=== PATIENT | male | born 1940 | race Caucasian/White ===

== ENCOUNTER 2022-09-07 21:36 | Inpatient (IN) | payer OTHER, BC ==
[~2022-09-07] VITALS: Ht 175.3 cm; Wt 70.1 kg
[2022-09-07 21:36] VITALS: BP_SYST 122
--- NOTE | 2022-09-07 21:36 | NUR ---
BROUGHT IN BY [facility], PLACED IN BED #4 AND TRIAGED. REPORT GIVEN TO HOLLY
--- NOTE | 2022-09-07 21:50 | NUR ---
FIRST CONTACT WITH PT. ASSESSMENT COMPLETED. AWAITING ADDITIONAL EVAL AND ORDERS.
[2022-09-07] MEDS ORDERED: cefTRIAXone 1 GM IVPB PREMIX 50 ML IV ONE (22:15)
[2022-09-07 23:27] LABS: BASOPHILS % (AUTO) 0.6 % (0.0-2.0); EOSINOPHILS # (AUTO) 0.2 K/uL (0.0-0.4); EOSINOPHILS % (AUTO) 3.9 % (0.0-4.0); HEMATOCRIT 33.1 % (36-54); HEMOGLOBIN 11.1 g/dL (14.0-18.0); LYMPHOCYTES # (AUTO) 0.8 K/uL (1.0-5.5); LYMPHOCYTES % (AUTO) 12.8 % (20.5-51.5); MEAN CORPUSCULAR HEMOGLOBIN 33 pg (27-31); MEAN CORPUSCULAR HGB CONC 34 % (32-36); MEAN CORPUSCULAR VOLUME 97 fL (79.0-98.0); MONOCYTES # (AUTO) 0.6 K/uL (0.0-1.0); MONOCYTES % (AUTO) 9.3 % (1.7-9.3); NEUTROPHILS # (AUTO) 4.5 K/uL (1.8-7.7); NEUTROPHILS % (AUTO) 73.4 % (40.0-70.0); PLATELET COUNT (AUTO) 133 K/uL (130-430); RED BLOOD CELL COUNT(AUTO) 3.41 MIL/uL (4.2-6.2); RED CELL DISTRIBUTION WIDTH 14.8 % (9.0-15.0); WHITE BLOOD COUNT (AUTO) 6.1 K/uL (4.8-10.8)
--- NOTE | 2022-09-07 23:28 | NUR ---
MD AT BEDSIDE FOR EVALUATION AND ORDERS.
[2022-09-07 23:46] LABS: ANION GAP 9 (5-15); CALCIUM 8.1 mg/dL (8.4-11.0); CHLORIDE 104 mmol/L (98-107); CREATININE 1.08 mg/dL (0.55-1.30); GLUCOSE 142 mg/dL (70-99); UREA NITROGEN, BLOOD 12 mg/dL (8-21)
[2022-09-07 23:53] LABS: ALANINE AMINOTRANSFERASE 34 U/L (12-78); ALBUMIN 3.1 g/dL (3.4-4.8); ASPARTATE AMINOTRANSFERASE 38 U/L (10-37)
--- NOTE | 2022-09-08 00:08 | NUR ---
URINE SAMPLE COLLECTED AND SENT TO LAB
[2022-09-08 00:20] LABS: BILIRUBIN,URINE NEGATIVE (NEGATIVE); BLOOD, URINE NEGATIVE (NEGATIVE); CLARITY/URINE CLEAR (CLEAR); COLOR,URINE YELLOW (YELLOW); GLUCOSE,URINE NEGATIVE (NEGATIVE); KETONES,URINE NEGATIVE (NEGATIVE); LEUKOCYTE ESTERASE ,URINE NEGATIVE (NEGATIVE); NITRITE, URINE NEGATIVE (NEGATIVE); PROTEIN URINE NEGATIVE (NEGATIVE)
--- NOTE | 2022-09-08 00:34 | NUR ---
Admit bed requested Patient will be admitted to care of . Admitted to TELE unit. Diagnosis CHEST PAIN/ WEAKNESS Inpatient (Yes or No) Y Observation (Yes or No) N Orientation concerns or request close to nursing station (Yes or No) N Covid Status NA On vent or bipap N Isolation requirements N Needs a sitter N From Home (Yes or if No enter name of facility) Y Requires Dialysis (Yes or No) N Med Rec Completed (Yes of No) Y
[2022-09-08] MEDS ORDERED: LEVO25TA2 PO (00:51)
[2022-09-08] MEDS ORDERED: DONE10TA44 PO (00:51)
[2022-09-08] MEDS ORDERED: LIP40 PO (00:51)
[2022-09-08] MEDS ORDERED: PHEDM120 PO (00:51)
[2022-09-08] MEDS ORDERED: TICA90TA PO (00:51)
[2022-09-08] MEDS ORDERED: CARV3.1246 PO (00:51)
[2022-09-08] MEDS ORDERED: SER25 PO (00:54)
[2022-09-08] MEDS ORDERED: ESCI10TA PO (00:54)
[2022-09-08 02:27] VITALS: BP_SYST 128
--- NOTE | 2022-09-08 02:33 | NUR ---
Patient will be admitted to care of DR QUAN. Admitted to TELE unit. Will go to room 114A. Belongings list completed. Complete and up to date summary report printed. SBAR report to be given at bedside TO HOLLEY MURPHY with opportunity for questions.
--- NOTE | 2022-09-08 03:00 | NUR ---
ADMISSION NOTE Received patient from ER via gurney. Patient admitted with diagnosis of Hypotension. Patient is awake, alert, oriented X . Patient oriented to hospital room, call light, toileting, pain management and safety-teach back done. Patient is FALL RISK informed THAT THERE room number is . Personal belongings checked and Belongings List documented. Call light within reach PROCEDURES EXPLAINED call cee also given to patient BED ALARM IS ON / .
--- NOTE | 2022-09-08 03:15 | NUR ---
Hourly Rounding patient is Resting is verbally Responsive chest movement symmetrical also unlabored bed alarm is on SKIN DRY WARM assist for position comfort measures implemented tolerated / .
--- NOTE | 2022-09-08 03:57 | NUR ---
Consultation Paged Reason for Consultation: Chest Pain Was consult called: Y Person who was notified: Nigel Davis via text message Consulting Physician: Nigel Davis Ordering Physician: Nghai Davis
--- NOTE | 2022-09-08 07:40 | NUR ---
Opening Nurse Notes: Patient laying in bed. A/O x 3, Japanese speaking. Patient breathing even on room air. No pain, no distress, no SOB. Patient is on a cardiac diet. Bed is locked in lowest position. Call light within reach, all needs met, will continue with plan of care.
[2022-09-08 08:10] VITALS: BP_SYST 113
[2022-09-08] MEDS ORDERED: PROMETHAZINE-DM 6.25 MG-15 MG/5 ML UDC PO PRN (09:30)
[2022-09-08] MEDS ORDERED: HYDROcodone/ACETAMIN 5-325 MG TAB (NORCO/ VICODIN) PO PRN (09:30)
[2022-09-08] MEDS ORDERED: LORazepam 2 MG/ML VIAL IVP PRN (09:30)
[2022-09-08] MEDS ORDERED: ACETAMINOPHEN 325 MG TABLET PO PRN ×2 (09:30→10:15)
[2022-09-08] MEDS ORDERED: ESCITALOPRAM OXALATE 10 MG TABLET PO SCH (09:30)
[2022-09-08] MEDS ORDERED: ONDANSETRON HCL 4 MG/2 ML VIAL IVP PRN (09:30)
[2022-09-08] MEDS ORDERED: HYDROcodone/ACETAMIN 10-325 MG TAB PO PRN (09:30)
[2022-09-08] MEDS ORDERED: NALOXONE HCL 0.4 MG/ML AMP (NARCAN) IVP PRN ×2 (09:30)
[2022-09-08] MEDS ORDERED: LEVOTHYROXINE SODIUM 0.025 MG TABLET PO ONE (10:15)
[2022-09-08 10:20] LABS: BASOPHILS % (AUTO) 0.8 % (0.0-2.0); EOSINOPHILS # (AUTO) 0.2 K/uL (0.0-0.4); EOSINOPHILS % (AUTO) 5.4 % (0.0-4.0); HEMATOCRIT 32.3 % (36-54); LYMPHOCYTES # (AUTO) 0.6 K/uL (1.0-5.5); LYMPHOCYTES % (AUTO) 14.8 % (20.5-51.5); MEAN CORPUSCULAR HEMOGLOBIN 33 pg (27-31); MEAN CORPUSCULAR HGB CONC 34 % (32-36); MEAN CORPUSCULAR VOLUME 95 fL (79.0-98.0); MONOCYTES # (AUTO) 0.4 K/uL (0.0-1.0); MONOCYTES % (AUTO) 9.5 % (1.7-9.3); NEUTROPHILS # (AUTO) 2.9 K/uL (1.8-7.7); NEUTROPHILS % (AUTO) 69.5 % (40.0-70.0); PLATELET COUNT (AUTO) 137 K/uL (130-430); RED BLOOD CELL COUNT(AUTO) 3.39 MIL/uL (4.2-6.2); RED CELL DISTRIBUTION WIDTH 14.7 % (9.0-15.0); WHITE BLOOD COUNT (AUTO) 4.2 K/uL (4.8-10.8)
[2022-09-08 10:36] LABS: ALANINE AMINOTRANSFERASE 35 U/L (12-78); ANION GAP 8 (5-15); ASPARTATE AMINOTRANSFERASE 32 U/L (10-37); CALCIUM 8.2 mg/dL (8.4-11.0); CHLORIDE 105 mmol/L (98-107); CHOLESTEROL 131 mg/dL (<200); CREATININE 1.01 mg/dL (0.55-1.30); GLUCOSE 182 mg/dL (70-99); HDL CHOLESTEROL 48 mg/dL (>45); PHOSPHORUS 3.1 mg/dL (2.7-4.5); THYROID STIMULATING HORMONE 1.44 uIu/mL (0.34-4.82); TOTAL BILIRUBIN 0.9 mg/dL (0.0-1.0); TRIGLYCERIDES 168 mg/dL (30-150); UREA NITROGEN, BLOOD 12 mg/dL (8-21)
[2022-09-08] MEDS: NORMAL SALINE 5 ML DISP.SYRIN IVF SCH ×2 (13:07→22:36)
[2022-09-08] MEDS ORDERED: NORMAL SALINE 5 ML DISP.SYRIN IVF SCH (14:00)
[2022-09-08 16:00] VITALS: BP_SYST 104
--- NOTE | 2022-09-08 16:15 | NUR ---
Late Noon Nurse Notes: Patient laying in bed. No pain, no distress, no SOB. Bed is locked in lowest position. Call light within reach, all needs met, will continue with plan of care.
--- NOTE | 2022-09-08 19:15 | NUR ---
Closing Nurse Notes: Patient stable, A/O x2, patient speaks Yoruba. Patient breathing even and unlabored on room air. No pain, no distress, no SOB. Bed is locked in lowest position. Three of patients home medications taken to pharmacy, provided by at 7pm. Call light within reach, all needs met, will endorse to manufacturing supervisor 2nd shift nurse HOLLEY Burgess.
[2022-09-08 20:00] VITALS: BP_SYST 101
[2022-09-08] MEDS: CARVEDILOL 3.125 MG TABLET (COREG) PO SCH (21:00)
[2022-09-08] MEDS ORDERED: DONEPEZIL HCL 5 MG TABLET (ARICEPT) PO SCH (21:00)
[2022-09-08] MEDS ORDERED: ATORVASTATIN 20 MG TABLET PO SCH (21:00)
[2022-09-08] MEDS: D5/0.45 NS 1,000 ML IV SCH (22:23)
[2022-09-08] MEDS: cephALEXin 500 MG CAPSULE PO SCH (22:24)
[2022-09-08] MEDS: QUEtiapine FUMARATE 25 MG TABLET PO SCH (22:24)
[2022-09-08] MEDS: TICAGRELOR 90 MG TABLET PO SCH (22:38)
[2022-09-09 01:30] VITALS: BP_SYST 127
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
[2022-09-09 04:39] LABS: BASOPHILS # (AUTO) 0.1 K/uL (0.0-0.2); BASOPHILS % (AUTO) 1.1 % (0.0-2.0); EOSINOPHILS # (AUTO) 0.3 K/uL (0.0-0.4); EOSINOPHILS % (AUTO) 5.7 % (0.0-4.0); HEMATOCRIT 31.8 % (36-54); HEMOGLOBIN 10.7 g/dL (14.0-18.0); LYMPHOCYTES # (AUTO) 1.2 K/uL (1.0-5.5); LYMPHOCYTES % (AUTO) 23.3 % (20.5-51.5); MEAN CORPUSCULAR HEMOGLOBIN 32 pg (27-31); MEAN CORPUSCULAR HGB CONC 34 % (32-36); MEAN CORPUSCULAR VOLUME 96 fL (79.0-98.0); MONOCYTES # (AUTO) 0.6 K/uL (0.0-1.0); MONOCYTES % (AUTO) 11.3 % (1.7-9.3); NEUTROPHILS % (AUTO) 58.6 % (40.0-70.0); PLATELET COUNT (AUTO) 136 K/uL (130-430); RED BLOOD CELL COUNT(AUTO) 3.34 MIL/uL (4.2-6.2); RED CELL DISTRIBUTION WIDTH 14.8 % (9.0-15.0); WHITE BLOOD COUNT (AUTO) 5.1 K/uL (4.8-10.8)
[2022-09-09 04:51] LABS: ANION GAP 10 (5-15); CHLORIDE 105 mmol/L (98-107); GLUCOSE 138 mg/dL (70-99); UREA NITROGEN, BLOOD 15 mg/dL (8-21)
--- NOTE | 2022-09-09 06:45 | NUR ---
PT CONFUSED. PT CONTINUES YELLING OUT. PT REORIENTED TO THE HOSPITAL. PT EDUCATED TO USE CALL LIGHT IF HE NEEDS ASSISTANCE
[2022-09-09] MEDS: cephALEXin 500 MG CAPSULE PO SCH ×2 (06:54→13:35)
[2022-09-09] MEDS: D5/0.45 NS 1,000 ML IV SCH ×2 (06:55→10:07)
[2022-09-09] MEDS: NORMAL SALINE 5 ML DISP.SYRIN IVF SCH ×2 (06:55→13:36)
[2022-09-09] MEDS ORDERED: LEVOTHYROXINE SODIUM 0.025 MG TABLET PO SCH (07:00)
--- NOTE | 2022-09-09 07:15 | NUR ---
Opening Nurse Notes: Patient laying in bed. A/O x 2, patient occasionally shouting out and confused. Patient breathing even on room air. No pain, mild distress due to confusion, no SOB. Patient is on a Cardiac diet. Bed is locked in lowest position. Call light within reach, all needs met, will continue with plan of care.
[2022-09-09 07:35] VITALS: BP_SYST 121
[2022-09-09] MEDS ORDERED: CITALOPRAM HYDROBROMIDE 20 MG TABLET PO SCH (09:00)
[2022-09-09] MEDS: CARVEDILOL 3.125 MG TABLET (COREG) PO SCH (09:03)
[2022-09-09] MEDS: TICAGRELOR 90 MG TABLET PO SCH (09:03)
[2022-09-09] MEDS: QUEtiapine FUMARATE 25 MG TABLET PO SCH (09:03)
[2022-09-09] MEDS ORDERED: POTASSIUM CHLORIDE 20 MEQ TAB.PRT.SR PO ONE (10:30)
[2022-09-09 11:10] VITALS: BP_SYST 116
--- NOTE | 2022-09-09 11:34 | NUR ---
SENT A FAX TO [facility] WAITING TO HERE BACK
--- NOTE | 2022-09-09 11:36 | NUR ---
Nurse Notes: Patient's expressed to Case Management that Home Health is not ready for her and he needs to stay another night. Patient was medically cleared by doctor. Provided doctor Nghia Gutierrez's office number and name for patient's .
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
--- NOTE | 2022-09-09 12:10 | NUR ---
Afternoon Nurse Notes: Patient in bed in stable condition. Patient on room air. No pain, no distress, no SOB. Bed is locked in lowest position. Call light within reach, all needs met, will continue with plan of care. at bedside.
[2022-09-09 15:27] VITALS: BP_SYST 110
--- NOTE | 2022-09-09 15:33 | NUR ---
PHYSICAL THERAPY CO-SIGN The Physical Therapy Progress Notes documented by [employer] Operator have been reviewed. Reviewed/Co-Signed by: Jeffery Ross Documentation Done by:ADAM SOLIS Addendum: 09/09/22 at 1534 by Jeffery Ross PT Amended: Links added.
--- NOTE | 2022-09-09 16:10 | NUR ---
Late Noon Nurse Notes: Patient laying in bed. No pain, no distress, no SOB. Bed is locked in lowest position. Call light within reach, all needs met, will continue with plan of care. at bedside. Awaiting further discharge instructions.
--- NOTE | 2022-09-09 19:37 | NUR ---
Closing Nurse Notes: Patient stable, A/O x2, Czech speaking. Patient breathing even and unlabored on room air. No pain, no distress, no SOB. Bed is locked in lowest position. Call light within reach, all needs met, will endorse to assembler 1st shift nurse RN in regards to discharge.
[2022-09-09 20:15] VITALS: BP_SYST 117
--- NOTE | 2022-09-10 09:31 | NUR ---
Patient accepted by [facility]- they will provide rolling walker to the patient
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
== END 2022-09-09 20:39 | disposition home health service (06) | DRG 313 ==
LOC: SED 21:36 → STU 09-08 01:00
PROVIDERS: ADMIT Preventive Medicine Preventive Medicine/Occupational Environmental Medicine; ATTEND Preventive Medicine Preventive Medicine/Occupational Environmental Medicine
DX: R07.89 Other chest pain (principal); N39.0 Urinary tract infection, site not specified; E83.51 Hypocalcemia; E11.65 Type 2 diabetes mellitus with hyperglycemia; I10 Essential (primary) hypertension; I48.91 Unspecified atrial fibrillation; I11.9 Hypertensive heart disease without heart failure; I49.5 Sick sinus syndrome; Z20.822 Contact with and (suspected) exposure to COVID-19; E88.09 Other disorders of plasma-protein metabolism, not elsewhere classified; E03.9 Hypothyroidism, unspecified; Z85.46 Personal history of malignant neoplasm of prostate; Z95.0 Presence of cardiac pacemaker
CPT/HCPCS: 36415; 71045; 80048; 80053; 80061; 81003; 83605; 83735; 83880; 84100; 84443; 84484; 85025; 87040; 87086; 93005; 93306; 96365; 97110-GP; 97116-GP; 97530-GP; 99285; G0378; J0696

== ENCOUNTER 2023-08-02 13:55 | Inpatient (IN) | payer OTHER, BC ==
[~2023-08-02] VITALS: Ht 172.7 cm; Wt 72.6 kg
[~2023-08-02 13:55] MED LIST: CARV3.1246 PO; DONE10TA44 PO; ESCI10TA PO; LEVO25TA2 PO; LIP40 PO; PHEDM120 PO; SER25 PO; TICA90TA PO
[2023-08-02 13:56] VITALS: BP_SYST 115; PULSE 61; RESP 20; TEMP 97.8; O2SAT 94
[2023-08-02] MEDS: NACL 0.9% 1,000 ML IV ONE (14:32)
[2023-08-02 14:55] LABS: BASOPHILS % (AUTO) 0.7 % (0.0-2.0); EOSINOPHILS # (AUTO) 0.2 K/uL (0.0-0.4); EOSINOPHILS % (AUTO) 2.5 % (0.0-4.0); HEMATOCRIT 32.9 % (36-54); LYMPHOCYTES # (AUTO) 0.6 K/uL (1.0-5.5); LYMPHOCYTES % (AUTO) 9.8 % (20.5-51.5); MEAN CORPUSCULAR HEMOGLOBIN 32 pg (27-31); MEAN CORPUSCULAR HGB CONC 33 % (32-36); MEAN CORPUSCULAR VOLUME 96 fL (79.0-98.0); MONOCYTES # (AUTO) 0.4 K/uL (0.0-1.0); MONOCYTES % (AUTO) 6.4 % (1.7-9.3); NEUTROPHILS # (AUTO) 5.3 K/uL (1.8-7.7); NEUTROPHILS % (AUTO) 80.6 % (40.0-70.0); PLATELET COUNT (AUTO) 119 K/uL (130-430); RED BLOOD CELL COUNT(AUTO) 3.41 MIL/uL (4.2-6.2); RED CELL DISTRIBUTION WIDTH 14.6 % (9.0-15.0); WHITE BLOOD COUNT (AUTO) 6.6 K/uL (4.8-10.8)
[2023-08-02 15:05] LABS: ANION GAP 8 (5-15); CALCIUM 8.3 mg/dL (8.4-11.0); CARBON DIOXIDE 25 mmol/L (23-29); CHLORIDE 107 mmol/L (98-107); CREATININE 1.03 mg/dL (0.55-1.30); GLUCOSE 150 mg/dL (74-106); POTASSIUM 3.7 mmol/L (3.5-5.1); SODIUM SERUM 140 mmol/L (136-145); UREA NITROGEN, BLOOD 18 mg/dL (8-21)
[2023-08-02 15:07] LABS: BILIRUBIN,URINE NEGATIVE (NEGATIVE); BLOOD, URINE NEGATIVE (NEGATIVE); CLARITY/URINE CLEAR (CLEAR); COLOR,URINE YELLOW (YELLOW); GLUCOSE,URINE NEGATIVE (NEGATIVE); KETONES,URINE NEGATIVE (NEGATIVE); LEUKOCYTE ESTERASE ,URINE NEGATIVE (NEGATIVE); NITRITE, URINE NEGATIVE (NEGATIVE); PH,URINE 7.5 (5.0-8.0); PROTEIN URINE NEGATIVE (NEGATIVE)
[2023-08-02 15:08] LABS: PROTHROMBIN TIME 10.4 SECS (9.5-12.5)
[2023-08-02 15:12] LABS: ALANINE AMINOTRANSFERASE 23 U/L (12-78); ALBUMIN 2.9 g/dL (3.4-4.8); ASPARTATE AMINOTRANSFERASE 22 U/L (10-37); BILIRUBIN,DIRECT 0.2 mg/dL (0.0-0.3); TOTAL BILIRUBIN 0.6 mg/dL (0.0-1.0); TOTAL PROTEIN, SERUM 6.7 g/dL (6.4-8.3)
[2023-08-02 21:15] VITALS: BP_SYST 110; PULSE 60; RESP 18; TEMP 97.8; O2SAT 95
[2023-08-03 03:00] VITALS: BP_SYST 112; PULSE 60; RESP 18
[2023-08-03 08:00] VITALS: BP_SYST 112; PULSE 70; RESP 18; TEMP 97.2; O2SAT 95
[2023-08-03 11:11] VITALS: BP_SYST 108; PULSE 73; RESP 16; TEMP 97.6; O2SAT 98
[2023-08-03] MEDS ORDERED: ACETAMINOPHEN 325 MG TABLET PO PRN (11:15)
[2023-08-03] MEDS ORDERED: LORazepam 2 MG/ML VIAL IVP PRN (11:15)
[2023-08-03] MEDS ORDERED: PROMETHAZINE-DM 6.25 MG-15 MG/5 ML UDC PO PRN (11:15)
[2023-08-03] MEDS ORDERED: NALOXONE HCL 0.4 MG/ML AMP (NARCAN) IVP PRN ×2 (11:15)
[2023-08-03] MEDS ORDERED: HYDROcodone/ACETAMIN 5-325 MG TAB (NORCO/ VICODIN) PO PRN (11:15)
[2023-08-03] MEDS ORDERED: ONDANSETRON HCL 4 MG/2 ML VIAL IVP PRN (11:15)
[2023-08-03] MEDS ORDERED: HYDROcodone/ACETAMIN 10-325 MG TAB PO PRN (11:15)
[2023-08-03] MEDS: CITALOPRAM HYDROBROMIDE 20 MG TABLET PO ONE (12:31)
[2023-08-03] MEDS: LEVOTHYROXINE SODIUM 0.025 MG TABLET PO ONE (12:31)
[2023-08-03 15:01] VITALS: BP_SYST 108; PULSE 69; RESP 14; TEMP 97.1; O2SAT 93
[2023-08-03] MEDS: ACETAMINOPHEN 325 MG TABLET PO PRN (17:14)
[2023-08-03 20:00] VITALS: BP_SYST 104; PULSE 62; RESP 18; TEMP 98.4; O2SAT 99
[2023-08-03] MEDS ORDERED: TICAGRELOR 90 MG TABLET PO SCH (21:00)
[2023-08-03] MEDS ORDERED: CARVEDILOL 3.125 MG TABLET (COREG) PO SCH (21:00)
[2023-08-03] MEDS: DONEPEZIL HCL 5 MG TABLET (ARICEPT) PO SCH (21:57)
[2023-08-03] MEDS: QUEtiapine FUMARATE 25 MG TABLET PO SCH (21:57)
[2023-08-03] MEDS: ATORVASTATIN 20 MG TABLET PO SCH (21:58)
[2023-08-03] MEDS: FAMOTIDINE 20 MG TABLET PO ONE (21:58)
[2023-08-03] MEDS: METOPROLOL TARTRATE 25 MG TABLET PO SCH (22:06)
[2023-08-03] MEDS: NORMAL SALINE 5 ML DISP.SYRIN IVF SCH (22:06)
[2023-08-04] VITALS (7 sets, daily range): BP systolic 103–136; PULSE 60–98; RESP 15–20; TEMP 97.3–98.6; O2SAT 95–99
[2023-08-04 06:19] LABS: BASOPHILS # (AUTO) 0.1 K/uL (0.0-0.2); BASOPHILS % (AUTO) 0.9 % (0.0-2.0); EOSINOPHILS # (AUTO) 0.3 K/uL (0.0-0.4); HEMATOCRIT 33.8 % (36-54); HEMOGLOBIN 11.3 g/dL (14.0-18.0); LYMPHOCYTES # (AUTO) 1.6 K/uL (1.0-5.5); LYMPHOCYTES % (AUTO) 26.6 % (20.5-51.5); MEAN CORPUSCULAR HEMOGLOBIN 32 pg (27-31); MEAN CORPUSCULAR HGB CONC 34 % (32-36); MEAN CORPUSCULAR VOLUME 96 fL (79.0-98.0); MONOCYTES # (AUTO) 0.5 K/uL (0.0-1.0); MONOCYTES % (AUTO) 8.8 % (1.7-9.3); NEUTROPHILS # (AUTO) 3.5 K/uL (1.8-7.7); NEUTROPHILS % (AUTO) 58.7 % (40.0-70.0); PLATELET COUNT (AUTO) 142 K/uL (130-430); RED BLOOD CELL COUNT(AUTO) 3.53 MIL/uL (4.2-6.2); RED CELL DISTRIBUTION WIDTH 14.6 % (9.0-15.0); WHITE BLOOD COUNT (AUTO) 5.9 K/uL (4.8-10.8)
[2023-08-04 07:02] LABS: ALANINE AMINOTRANSFERASE 27 U/L (12-78); ANION GAP 8 (5-15); ASPARTATE AMINOTRANSFERASE 32 U/L (10-37); CALCIUM 8.6 mg/dL (8.4-11.0); CARBON DIOXIDE 26 mmol/L (23-29); CHLORIDE 105 mmol/L (98-107); CREATININE 0.93 mg/dL (0.55-1.30); GLUCOSE 127 mg/dL (74-106); POTASSIUM 3.7 mmol/L (3.5-5.1); SODIUM SERUM 139 mmol/L (136-145); TOTAL BILIRUBIN 0.7 mg/dL (0.0-1.0); TOTAL PROTEIN, SERUM 7.4 g/dL (6.4-8.3); UREA NITROGEN, BLOOD 16 mg/dL (8-21)
[2023-08-04] MEDS: LEVOTHYROXINE SODIUM 0.025 MG TABLET PO SCH (07:02)
[2023-08-04] MEDS: CITALOPRAM HYDROBROMIDE 20 MG TABLET PO SCH (09:22)
[2023-08-04] MEDS: ASPIRIN 81 MG TAB.CHEW PO SCH (09:22)
[2023-08-04] MEDS: FAMOTIDINE 20 MG TABLET PO SCH (09:24)
[2023-08-04] MEDS: DOCUSATE SODIUM 100 MG CAPSULE PO SCH (20:54)
[2023-08-05 00:05] VITALS: BP_SYST 129; PULSE 60; RESP 18; TEMP 97.9; O2SAT 96
[2023-08-05 05:57] LABS: BASOPHILS # (AUTO) 0.1 K/uL (0.0-0.2); BASOPHILS % (AUTO) 0.9 % (0.0-2.0); EOSINOPHILS # (AUTO) 0.3 K/uL (0.0-0.4); EOSINOPHILS % (AUTO) 5.3 % (0.0-4.0); HEMOGLOBIN 10.8 g/dL (14.0-18.0); LYMPHOCYTES # (AUTO) 1.6 K/uL (1.0-5.5); LYMPHOCYTES % (AUTO) 28.2 % (20.5-51.5); MEAN CORPUSCULAR HEMOGLOBIN 32 pg (27-31); MEAN CORPUSCULAR HGB CONC 34 % (32-36); MEAN CORPUSCULAR VOLUME 95 fL (79.0-98.0); MONOCYTES # (AUTO) 0.4 K/uL (0.0-1.0); NEUTROPHILS # (AUTO) 3.2 K/uL (1.8-7.7); NEUTROPHILS % (AUTO) 57.6 % (40.0-70.0); PLATELET COUNT (AUTO) 143 K/uL (130-430); RED BLOOD CELL COUNT(AUTO) 3.36 MIL/uL (4.2-6.2); RED CELL DISTRIBUTION WIDTH 14.7 % (9.0-15.0); WHITE BLOOD COUNT (AUTO) 5.6 K/uL (4.8-10.8)
[2023-08-05 06:46] LABS: ALANINE AMINOTRANSFERASE 28 U/L (12-78); ALBUMIN 2.9 g/dL (3.4-4.8); ANION GAP 7 (5-15); ASPARTATE AMINOTRANSFERASE 35 U/L (10-37); CALCIUM 8.7 mg/dL (8.4-11.0); CARBON DIOXIDE 27 mmol/L (23-29); CHLORIDE 106 mmol/L (98-107); CREATININE 1.09 mg/dL (0.55-1.30); GLUCOSE 117 mg/dL (74-106); POTASSIUM 3.8 mmol/L (3.5-5.1); SODIUM SERUM 140 mmol/L (136-145); TOTAL BILIRUBIN 0.4 mg/dL (0.0-1.0); TOTAL PROTEIN, SERUM 6.8 g/dL (6.4-8.3); UREA NITROGEN, BLOOD 20 mg/dL (8-21)
[2023-08-05 08:30] VITALS: O2SAT 98
[2023-08-05 08:45] VITALS: BP_SYST 111; PULSE 60; RESP 18; TEMP 97.4; O2SAT 97
[2023-08-05] MEDS ORDERED: ASA81 PO (09:55)
[2023-08-05] MEDS ORDERED: DOCU-144 PO (09:55)
[2023-08-05] MEDS ORDERED: METO25TA6 PO (09:55)
[2023-08-05 13:22] VITALS: BP_SYST 96; PULSE 60; RESP 16; TEMP 97; O2SAT 94
[2023-08-05 16:24] VITALS: BP_SYST 96; PULSE 60; RESP 17; TEMP 97; O2SAT 94
[2023-08-05 16:47] VITALS: BP_SYST 101; PULSE 68; RESP 16; TEMP 98.1; O2SAT 94
[2023-08-05] MEDS ORDERED: TICAGRELOR 60 MG TABLET PO SCH (21:00)
== END 2023-08-05 19:00 | disposition home health service (06) | DRG 101 ==
LOC: SED 13:55 → STU 19:06
PROVIDERS: ADMIT Preventive Medicine Preventive Medicine/Occupational Environmental Medicine; ATTEND Preventive Medicine Preventive Medicine/Occupational Environmental Medicine
PROC: 4A00X4Z Measurement of Central Nervous Electrical Activity, External Approach (ICD-10-PCS; principal; 2023-08-05)
DX: G40.909 Epilepsy, unspecified, not intractable, without status epilepticus (principal); E44.1 Mild protein-calorie malnutrition; I25.10 Atherosclerotic heart disease of native coronary artery without angina pectoris; E03.9 Hypothyroidism, unspecified; E11.65 Type 2 diabetes mellitus with hyperglycemia; E88.09 Other disorders of plasma-protein metabolism, not elsewhere classified; D64.9 Anemia, unspecified; E78.5 Hyperlipidemia, unspecified; F03.90 Unspecified dementia, unspecified severity, without behavioral disturbance, psychotic disturbance, mood disturbance, and anxiety; Z79.899 Other long term (current) drug therapy; Z85.46 Personal history of malignant neoplasm of prostate; Z95.0 Presence of cardiac pacemaker; W18.30XD Fall on same level, unspecified, subsequent encounter; Z86.79 Personal history of other diseases of the circulatory system; Z90.79 Acquired absence of other genital organ(s); I10 Essential (primary) hypertension; Z68.24 Body mass index [BMI] 24.0-24.9, adult
CPT/HCPCS: 36415; 70450-TC; 71045; 71100; 76705; 80048; 80053; 80076; 81001; 81003; 82948; 83605; 84484; 85025; 85610; 85730; 87040; 87086; 93005; 93306; 93880; 95816; 96360; 97110-GP; 97116-GP; 97530-GP; 99285; G0378